=== PATIENT | female | born 1985 | race American Indian/Alaskan Native ===

== ENCOUNTER 2018-06-11 17:37 | Emergency (ER) | payer OTHER ==
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
[2018-06-11 20:38] VITALS: BP 131/86
== END 2018-06-11 20:39 | disposition home or self-care (01) ==
LOC: ED 17:37
DX: S69.91XA Unspecified injury of right wrist, hand and finger(s), initial encounter (principal); Y08.89XA Assault by other specified means, initial encounter; Y93.89 Activity, other specified; Y99.8 Other external cause status; Y92.89 Other specified places as the place of occurrence of the external cause
CPT/HCPCS: 36415; 86706; 86803; 87806; 99283